=== PATIENT | male | born 1980 | race Caucasian/White ===

== ENCOUNTER 2018-08-12 12:53 | Day surgery (SDC) | payer OTHER, SELFPAY ==
--- NOTE | 2018-08-12 | PATH_ITS ---
[facility] Accession Number: [id number] . 01 Material submitted: . RECTAL BIOPSY . 02 Diagnosis: Rectum, Biopsy: Hyperplastic polyp. Negative for active inflammation, granulomata, dysplasia or malignancy. [facility]/08/13/2018 . 02 Electronically signed: . Ty Esparza MD, PhD, Pathologist NPI- [id number] . 01 Gross description: . Received one formalin-filled container labeled with the patient's name and labeled rectum. The specimen consists of a 0.4 cm portion of tissue, entirely submitted in one cassette. ([id number]) /FRR . 02 Pathologist provided ICD-10: K62.1 . 02 CPT . 991969 Specimen Comment: A duplicate report has been generated due to demographic updates. Performed at: 01 [facility] [address] [place] [address] [id number] MD Marcellus Durham MD Phone: [phone] Performed at: 02 [facility] [address] [place] [address] [id number] MD Ricarda Limon MD Phone: [phone]
[2018-08-12 13:58] VITALS: BP 116/68; PULSE 60; RESP 16; TEMP 36.4; O2SAT 99; BMI 24.7
[2018-08-12] MEDS: SODIUM CHLORIDE 0.9% 1,000 ML 100 ML IV (14:03)
--- NOTE | 2018-08-12 14:23 | PM.HP.1 ---
History of Present Illness Date Patient Seen: 08/12/18 Time Patient Seen: 14:23 Chief complaint: [id number] Narrative: Family history colon cancer. Patient's 1st colonoscopy Patient History Family & Social History Social History: household members family Meds Home Medications Medication Instructions Recorded Confirmed Type No Known Home Medications 08/12/18 08/12/18 History Allergies Allergy/AdvReac Type Severity Reaction Status Date / Time No Known Allergies Allergy Uncoded 01/07/18 12:47 Exam Vital Signs (past 8 hours): - 08/12/18 13:58 Temperature 97.6 F Pulse Rate 60 Respiratory Rate 16 Blood Pressure 116/68 Pulse Oximetry 99 Oxygen Delivery Method Room Air Narrative Exam Narrative: Oropharynx free of lesions Chest clear to auscultation percussion Cardiac exam reveals no S3 or murmur Assessment & Plan Plan: Assessment/Plan Narrative: Colonoscopy. Further recommendations for follow-up will be based on findings but if no polyps follow-up colonoscopy in 5 years.
--- NOTE | 2018-08-12 14:25 | PM.OP.ENDO ---
Operative Date/Time/Diagnoses Date of procedure: 08/12/18 Time of procedure: 14:25 Pre-op diagnosis: See indication and findings Procedure & Clinicians Study performed: Colonoscopy Same procedure as scheduled: Yes Indications: Family history of colon cancer in his father at less than age 60. First colonoscopy Surgeon: Jacy Foy Procedure Notes Procedure in detail: After informed consent was obtained the patient was placed in left lateral decubitus position. The video colonoscope was introduced the rectum and slowly advanced to the cecum. On slow withdrawal mucosa was carefully examined. The scope was removed. The patient tolerated the procedure well. Blood loss none Complications none Sedation Versed 8 mg fentanyl 100 mcg IV titration Total sedation time 26 min Findings 1. 5 mm polyp in the rectum Jumbo biopsy removed completely 2. Otherwise negative colonoscopy to cecum that was somewhat tortuous colon. Patient will need follow-up colonoscopy in 5 years due to his family history. We will be in touch regarding his pathology.
[2018-08-12] MEDS: fentaNYL 250 MCG/5 ML INJ IV (14:28)
[2018-08-12] MEDS: MIDAZOLAM 5 MG/5 ML VIAL IV (14:28)
[2018-08-12 14:51] VITALS: BP 113/73; PULSE 71; RESP 16; TEMP 36.8; O2SAT 98
[2018-08-12 15:11] VITALS: BP 110/61; PULSE 70; RESP 16; TEMP 36.6; O2SAT 99
== END 2018-08-12 15:14 | disposition home or self-care (01) ==
PROVIDERS: Visit Provider Internal Medicine Gastroenterology
PROC: 0DJD8ZZ Inspection of Lower Intestinal Tract, Via Natural or Artificial Opening Endoscopic (ICD-10-PCS; CPT 45378; principal; 2018-08-12 14:00)
DX: Z12.11 Encounter for screening for malignant neoplasm of colon (principal); Z80.0 Family history of malignant neoplasm of digestive organs; K62.1 Rectal polyp
CPT/HCPCS: 45380; 88305; J2250; J3010

== ENCOUNTER → 2021-01-01 06:39 | Outpatient (CLI) | payer OTHER, SELFPAY ==
--- NOTE | 2021-01-01 | DI.MRI.S_ITS ---
PROCEDURE: MR SHOULDER LT WO CON INDICATIONS: PAIN IN LEFT SHOULDER TECHNIQUE: Noncontrast oblique coronal T2 fast spin echo with fat saturation, oblique sagittal T1 spin echo and T2 fast spin echo with fat saturation, axial T1 spin echo and T2 fast spin echo with fat saturation through the shoulder. COMPARISON: None. FINDINGS: Image quality: Excellent. Rotator cuff: There is partial-thickness tear of the supraspinatus tendon. There is mild infraspinatus and subscapularis tendinosis. Sagittal images demonstrate no rotator cuff muscle atrophy. Bones and bursae: No bone marrow contusions or fractures. There there is cortical irregularity with subcortical cystic changes in the posterior humeral head. There is moderate acromioclavicular joint degeneration. The acromion demonstrates conventional anatomy, without an os acromiale. No pathologic subacromial-subdeltoid or subcoracoid bursal fluid is present. Capsule and soft tissues: Labrum is appears normal in absence of intra-articular contrast. The long head of the biceps tendon demonstrates normal location and morphology. The rotator interval appears normal, without fibrosis. The coracohumeral ligament is normal in thickness. IMPRESSION: 1. Partial thickness tear of the supraspinatus tendon. 2. Infraspinatus and subscapularis tendinosis. 3. Moderate acromioclavicular joint degeneration. 4. Cortical irregularity and subcortical cystic changes, suggesting shoulder impingement Dictated by: Lucina Pace M.D. on 01/01/2021 at 11:06 Approved by: Lucina Pace M.D. on 01/01/2021 at 11:28
== END ==
PROVIDERS: Referring Provider Orthopaedic Surgery; Visit Provider Orthopaedic Surgery
DX: S46.012A Strain of muscle(s) and tendon(s) of the rotator cuff of left shoulder, initial encounter (principal); M19.012 Primary osteoarthritis, left shoulder
CPT/HCPCS: 73221

== ENCOUNTER → 2022-01-28 10:33 | Outpatient (CLI) | payer OTHER, SELFPAY ==
--- NOTE | 2022-01-28 | DI.US.S_ITS ---
PROCEDURE: US SCROTUM INDICATIONS: SCROTAL VARICIES TECHNIQUE: Real-time scanning was performed of the scrotum and testicles, with image documentation. Color and pulse Doppler interrogation was performed of both testicles. COMPARISON: None. FINDINGS: Right: Testicle is normal in size at 4.4 x 3 x 2 cm, and homogenous in echotexture. Epididymis is normal in overall size and morphology. No hydrocele or varicoceles. Overlying scrotal skin is normal in thickness. Left: Testicle is normal in size at 4.2 x 2.6 x 1.8 cm, and homogeneous in echotexture. Epididymis is normal in overall size and morphology. Left epididymal cyst measuring 0.6 cm. No hydrocele. Varicocele is present. Overlying scrotal skin is normal in thickness. Doppler: Color and pulse Doppler demonstrate normal and symmetric arterial flow in both testicles. IMPRESSION: 1. Left varicocele. 2. No hydrocele. 3. No testicular mass. 4. Incidental benign left epididymal cyst measuring 0.6 cm. Dictated by: Gibson Clement M.D. on 01/28/2022 at 11:33 Approved by: Gibson Clement M.D. on 01/28/2022 at 11:36
== END ==
PROVIDERS: Referring Provider Physician Assistant Surgical; Visit Provider Physician Assistant Surgical
DX: I86.1 Scrotal varices (principal); N50.3 Cyst of epididymis
CPT/HCPCS: 76870

== ENCOUNTER → 2023-01-10 07:55 | Outpatient (CLI) | payer OTHER, SELFPAY ==
[2023-01-10 09:53] LABS: Alanine Aminotransferase 17 IU/L (<50); Albumin 4.4 g/dL (3.5-5.0); Albumin Globulin Ratio 1.4 (1.0-2.8); Alkaline Phosphatase 51 U/L (38-126); Aspartate Aminotransferase 25 IU/L (17-59); BUN Creatinine Ratio 26.7 (6-22); Bilirubin Total 0.6 mg/dL (0.2-1.3); Blood Urea Nitrogen 27 mg/dL (9-20); Calcium 9.5 mg/dL (8.4-10.2); Carbon Dioxide 31 mmol/L (22-32); Chloride 101 mmol/L (98-107); Cholesterol 227 mg/dL (140-199); Estimated Glomerular Filt Rate > 60 mL/min (>60); Globulin 3.2 g/dL (1.7-4.1); Glucose 86 mg/dL (70-100); HDL Cholesterol 68 mg/dL (40-60); HEMOLYSIS < 15 (0-50); LDL Cholesterol Calculated 143 mg/dL (<100); Potassium 4.5 mmol/L (3.4-5.1); Sodium 138 mmol/L (137-145); Total Protein 7.6 g/dL (6.3-8.2); Triglycerides 79 mg/dL (35-150)
== END ==
PROVIDERS: Referring Provider Internal Medicine; Visit Provider Internal Medicine
DX: L66.2 Folliculitis decalvans (principal)
CPT/HCPCS: 36415; 80053; 80061

== ENCOUNTER → 2023-02-19 08:26 | Outpatient (CLI) | payer OTHER, SELFPAY ==
[2023-02-19 09:57] LABS: Alanine Aminotransferase 15 IU/L (<50); Albumin 4.4 g/dL (3.5-5.0); Albumin Globulin Ratio 1.4 (1.0-2.8); Alkaline Phosphatase 59 U/L (38-126); Aspartate Aminotransferase 23 IU/L (17-59); BUN Creatinine Ratio 19.1 (6-22); Bilirubin Total 0.5 mg/dL (0.2-1.3); Blood Urea Nitrogen 18 mg/dL (9-20); Calcium 9.7 mg/dL (8.4-10.2); Carbon Dioxide 30 mmol/L (22-32); Chloride 101 mmol/L (98-107); Cholesterol 203 mg/dL (140-199); Estimated Glomerular Filt Rate > 60 mL/min (>60); Globulin 3.2 g/dL (1.7-4.1); Glucose 91 mg/dL (70-100); HDL Cholesterol 41 mg/dL (40-60); HEMOLYSIS < 15 (0-50); LDL Cholesterol Calculated 137 mg/dL (<100); Potassium 4.3 mmol/L (3.4-5.1); Sodium 139 mmol/L (137-145); Total Protein 7.6 g/dL (6.3-8.2); Triglycerides 127 mg/dL (35-150)
== END ==
PROVIDERS: Referring Provider Internal Medicine; Visit Provider Internal Medicine
DX: L66.2 Folliculitis decalvans (principal)
CPT/HCPCS: 36415; 80053; 80061

== ENCOUNTER → 2023-03-17 09:14 | Outpatient (CLI) | payer OTHER, SELFPAY ==
[2023-03-17 10:56] LABS: Alanine Aminotransferase 15 IU/L (<50); Albumin 4.5 g/dL (3.5-5.0); Albumin Globulin Ratio 1.5 (1.0-2.8); Alkaline Phosphatase 53 U/L (38-126); Aspartate Aminotransferase 23 IU/L (17-59); BUN Creatinine Ratio 18.5 (6-22); Bilirubin Total 0.5 mg/dL (0.2-1.3); Blood Urea Nitrogen 17 mg/dL (9-20); Calcium 9.5 mg/dL (8.4-10.2); Carbon Dioxide 30 mmol/L (22-32); Chloride 101 mmol/L (98-107); Cholesterol 206 mg/dL (140-199); Estimated Glomerular Filt Rate > 60 mL/min (>60); Globulin 3.1 g/dL (1.7-4.1); Glucose 95 mg/dL (70-100); HDL Cholesterol 45 mg/dL (40-60); HEMOLYSIS < 15 (0-50); LDL Cholesterol Calculated 145 mg/dL (<100); Potassium 4.6 mmol/L (3.4-5.1); Sodium 137 mmol/L (137-145); Total Protein 7.6 g/dL (6.3-8.2); Triglycerides 81 mg/dL (35-150)
== END ==
PROVIDERS: Referring Provider Internal Medicine; Visit Provider Internal Medicine
DX: L66.2 Folliculitis decalvans (principal)
CPT/HCPCS: 36415; 80053; 80061

== ENCOUNTER → 2023-04-14 08:28 | Outpatient (CLI) | payer OTHER, SELFPAY ==
[2023-04-14 10:04] LABS: Alanine Aminotransferase 15 IU/L (<50); Albumin 4.3 g/dL (3.5-5.0); Albumin Globulin Ratio 1.3 (1.0-2.8); Alkaline Phosphatase 55 U/L (38-126); Aspartate Aminotransferase 24 IU/L (17-59); Bilirubin Total 0.6 mg/dL (0.2-1.3); Blood Urea Nitrogen 20 mg/dL (9-20); Calcium 9.3 mg/dL (8.4-10.2); Carbon Dioxide 29 mmol/L (22-32); Chloride 101 mmol/L (98-107); Cholesterol 206 mg/dL (140-199); Estimated Glomerular Filt Rate > 60 mL/min (>60); Globulin 3.3 g/dL (1.7-4.1); Glucose 89 mg/dL (70-100); HDL Cholesterol 42 mg/dL (40-60); HEMOLYSIS < 15 (0-50); LDL Cholesterol Calculated 143 mg/dL (<100); Potassium 4.4 mmol/L (3.4-5.1); Sodium 137 mmol/L (137-145); Total Protein 7.6 g/dL (6.3-8.2); Triglycerides 103 mg/dL (35-150)
== END ==
PROVIDERS: Referring Provider Internal Medicine; Visit Provider Internal Medicine
DX: L66.2 Folliculitis decalvans (principal)
CPT/HCPCS: 36415; 80053; 80061

== ENCOUNTER → 2023-05-12 08:23 | Outpatient (CLI) | payer OTHER, SELFPAY ==
[2023-05-12 10:21] LABS: Alanine Aminotransferase 18 IU/L (<50); Albumin 4.5 g/dL (3.5-5.0); Albumin Globulin Ratio 1.4 (1.0-2.8); Alkaline Phosphatase 68 U/L (38-126); Aspartate Aminotransferase 26 IU/L (17-59); BUN Creatinine Ratio 26.5 (6-22); Bilirubin Total 0.5 mg/dL (0.2-1.3); Blood Urea Nitrogen 26 mg/dL (9-20); Calcium 9.5 mg/dL (8.4-10.2); Carbon Dioxide 30 mmol/L (22-32); Chloride 99 mmol/L (98-107); Cholesterol 231 mg/dL (140-199); Estimated Glomerular Filt Rate > 60 mL/min (>60); Globulin 3.2 g/dL (1.7-4.1); Glucose 86 mg/dL (70-100); HDL Cholesterol 45 mg/dL (40-60); HEMOLYSIS < 15 (0-50); LDL Cholesterol Calculated 166 mg/dL (<100); Potassium 4.1 mmol/L (3.4-5.1); Sodium 137 mmol/L (137-145); Total Protein 7.7 g/dL (6.3-8.2); Triglycerides 100 mg/dL (35-150)
== END ==
PROVIDERS: Referring Provider Internal Medicine; Visit Provider Internal Medicine
DX: L66.2 Folliculitis decalvans (principal)
CPT/HCPCS: 36415; 80053; 80061

== ENCOUNTER → 2023-06-09 09:14 | Outpatient (CLI) | payer OTHER, SELFPAY ==
[2023-06-09 10:38] LABS: Alanine Aminotransferase 15 IU/L (<50); Albumin 4.4 g/dL (3.5-5.0); Albumin Globulin Ratio 1.4 (1.0-2.8); Alkaline Phosphatase 69 U/L (38-126); Aspartate Aminotransferase 25 IU/L (17-59); BUN Creatinine Ratio 21.3 (6-22); Bilirubin Total 0.4 mg/dL (0.2-1.3); Blood Urea Nitrogen 19 mg/dL (9-20); Calcium 9.6 mg/dL (8.4-10.2); Carbon Dioxide 30 mmol/L (22-32); Chloride 101 mmol/L (98-107); Cholesterol 211 mg/dL (140-199); Estimated Glomerular Filt Rate > 60 mL/min (>60); Globulin 3.1 g/dL (1.7-4.1); Glucose 92 mg/dL (70-100); HDL Cholesterol 42 mg/dL (40-60); HEMOLYSIS < 15 (0-50); LDL Cholesterol Calculated 146 mg/dL (<100); Potassium 4.5 mmol/L (3.4-5.1); Sodium 138 mmol/L (137-145); Total Protein 7.5 g/dL (6.3-8.2); Triglycerides 114 mg/dL (35-150)
== END ==
PROVIDERS: Referring Provider Internal Medicine; Visit Provider Internal Medicine
DX: I66.21 Occlusion and stenosis of right posterior cerebral artery (principal); I66.22 Occlusion and stenosis of left posterior cerebral artery
CPT/HCPCS: 36415; 80053; 80061

== ENCOUNTER → 2023-07-01 09:04 | Outpatient (CLI) | payer OTHER, SELFPAY ==
[2023-07-01 10:34] LABS: Alanine Aminotransferase 16 IU/L (<50); Albumin 4.4 g/dL (3.5-5.0); Albumin Globulin Ratio 1.4 (1.0-2.8); Alkaline Phosphatase 61 U/L (38-126); Aspartate Aminotransferase 24 IU/L (17-59); BUN Creatinine Ratio 23.5 (6-22); Bilirubin Total 0.4 mg/dL (0.2-1.3); Blood Urea Nitrogen 20 mg/dL (9-20); Calcium 9.7 mg/dL (8.4-10.2); Carbon Dioxide 28 mmol/L (22-32); Chloride 102 mmol/L (98-107); Cholesterol 209 mg/dL (140-199); Estimated Glomerular Filt Rate > 60 mL/min (>60); Globulin 3.1 g/dL (1.7-4.1); Glucose 92 mg/dL (70-100); HDL Cholesterol 43 mg/dL (40-60); HEMOLYSIS < 15 (0-50); LDL Cholesterol Calculated 148 mg/dL (<100); Potassium 4.4 mmol/L (3.4-5.1); Sodium 137 mmol/L (137-145); Total Protein 7.5 g/dL (6.3-8.2); Triglycerides 89 mg/dL (35-150)
== END ==
PROVIDERS: Referring Provider Internal Medicine; Visit Provider Internal Medicine
DX: L66.2 Folliculitis decalvans (principal)
CPT/HCPCS: 36415; 80053; 80061

== ENCOUNTER → 2023-08-11 07:01 | Outpatient (CLI) | payer OTHER, SELFPAY ==
[2023-08-11 08:19] LABS: Alanine Aminotransferase 14 IU/L (<50); Albumin 4.4 g/dL (3.5-5.0); Albumin Globulin Ratio 1.3 (1.0-2.8); Alkaline Phosphatase 60 U/L (38-126); Aspartate Aminotransferase 24 IU/L (17-59); Bilirubin Total 0.5 mg/dL (0.2-1.3); Blood Urea Nitrogen 22 mg/dL (9-20); Calcium 9.9 mg/dL (8.4-10.2); Carbon Dioxide 28 mmol/L (22-32); Chloride 101 mmol/L (98-107); Cholesterol 201 mg/dL (140-199); Estimated Glomerular Filt Rate > 60 mL/min (>60); Globulin 3.4 g/dL (1.7-4.1); Glucose 93 mg/dL (70-100); HDL Cholesterol 39 mg/dL (40-60); HEMOLYSIS < 15 (0-50); LDL Cholesterol Calculated 144 mg/dL (<100); Sodium 139 mmol/L (137-145); Total Protein 7.8 g/dL (6.3-8.2); Triglycerides 91 mg/dL (35-150)
== END ==
PROVIDERS: Referring Provider Internal Medicine; Visit Provider Internal Medicine
DX: L66.2 Folliculitis decalvans (principal)
CPT/HCPCS: 36415; 80053; 80061

== ENCOUNTER 2024-03-22 07:26 | Day surgery (SDC) | payer OTHER, SELFPAY ==
--- NOTE | 2024-03-22 | PATH_ITS ---
[facility] Accession Number: [id number] No. of containers..01 Tissue . 01 Material submitted: . colon - DESCENDING COLON . 01 Diagnosis: Colon, descending, biopsy: Tubular adenoma. TXN 03/24/2024 1440 Local . 01 Electronically signed: . Nancie Palmer MD, Pathologist NPI- [id number] . 01 Gross description: . Received in formalin with two patient identifiers and descending colon, is a single decker soft tissue fragment, 0.3 cm in greatest dimension. Submitted in A1. ([id number]) /MRV 03/23/2024 1822 Local . 01 Pathologist provided ICD-10: D12.6 . 01 CPT . 100789 Specimen Comment: A courtesy copy of this report has been sent to [phone] Performed at: 01 [facility] [address], [place], [place] [id number] MD Marcellus Durham MD Phone: [phone]
[2024-03-22 07:43] VITALS: BP 118/75; PULSE 62; RESP 18; TEMP 36.2; O2SAT 99
[2024-03-22] MEDS: LACTATED RINGERS 1,000 ML 42 ML IV (07:54)
--- NOTE | 2024-03-22 07:59 | PM.HP.1 ---
History of Present Illness History of Present Illness Date Patient Seen: 03/22/24 Time Patient Seen: 07:59 Chief complaint: Colonoscopy Narrative: This is a 43-year-old male with a personal history of hyperplastic colon polyp in 2019 but a family history of colon cancer. He is here for high-risk screening. [facility] Social History household members: family Smoking Status: Never smoker Meds Home Medications and Allergies Home Medications Medication Instructions Recorded Confirmed Type azithromycin 250 mg tablet 250 mg PO DAILY 03/22/24 03/22/24 History calcipotriene 0.005 % scalp 1 applic topical BID 03/22/24 03/22/24 History solution Allergies Allergy/AdvReac Type Severity Reaction Status Date / Time No Known Allergies Allergy Uncoded 03/22/24 07:41 Review of Systems Review of Systems ROS: Yes All systems reviewed with the patient and are negative except as otherwise documented Exam Vital Signs (past 8 hours): - 03/22/24 07:43 Temperature 97.2 F L Pulse Rate 62 Respiratory Rate 18 Blood Pressure 118/75 Pulse Oximetry 99 Oxygen Delivery Method Room Air Oxygen Delivery Method Room Air Const General: cooperative HENMT Head: normal to inspection Eyes General: appearance normal, both eyes and all related structures Neck Neck: normal visual inspection Chest Chest: normal inspection of the chest Resp Effort & Inspection: normal respiratory effort Cardio Rate: regular rate GI Inspection: normal to inspection Skin General: no rashes or lesions noted Neuro General: patient alert and patient awake Extrem General: normal to inspection and no pedal edema Psych Appearance: grossly normal Assessment & Plan Assessment & Plan narrative: 43-year-old male with a family history of colon cancer. Colonoscopy is pursued today.
[2024-03-22] MEDS: LACTATED RINGERS 1,000 ML 120 ML IV (08:00)
--- NOTE | 2024-03-22 08:00 | PM.PREOP ---
Pre-operative Note Interval Note History & Physical reviewed/Exam performed by Physician: Yes Changes to H&P: No ASA Class (for procedural sedation): I
[2024-03-22 09:01] VITALS: BP 113/60; PULSE 79; RESP 14; TEMP 36.1; O2SAT 100
--- NOTE | 2024-03-22 09:01 | PM.OP.COLON ---
Operative Date/Time/Diagnoses Date of procedure: 03/22/24 Time of procedure: 09:01 Pre-op diagnosis: 43-year-old male with a family history of colon cancer. Post-op diagnosis: same Procedure & Clinicians Study performed: Colonoscopy with cold snare polypectomy Same procedure as scheduled: Yes Indications: 43-year-old with a family history of colon cancer Surgeon: Tk Rizvi Procedure Notes SCOAP/Timeout: Done Procedure in detail: After the risks and benefits were explained, written and verbal informed consent was obtained. The patient was brought into the procedure room and placed into the left lateral decubitus position. Please see anesthesia note for sedation details. Digital rectal examination was accomplished. The scope was introduced into the patient and advanced under direct visualization to the cecum as identified by the appendiceal orifice and ileocecal valve. The scope was slowly withdrawn to carefully examine the mucosa for any defects or lesions. Comprehensive imaging was accomplished throughout the rectum including the dentate line. The colon was decompressed, the scope was then removed from the patient who tolerated the procedure well. Adult colonoscope Bowel prep adequate Scope withdrawal time: 7 minutes Sedation minutes: 25 Complications: none Impression: The patient had a fairly lengthy colon. It was somewhat redundant. In the descending colon there was an approximately 5 mm polyp removed with cold snare. Grade 1 internal hemorrhoids with hypertrophied anal papillae were noted. No additional pathology was appreciated throughout. Endoscopic diagnosis 1. Small colon polyp 2. Grade 1 Internal hemorrhoids with hypertrophied anal papillae. Post-procedure Plan for aftercare: 1. Await histology 2. Repeat colonoscopy 5 years. Disposition: PACU
[2024-03-22 09:13] VITALS: BP 112/76; PULSE 64; RESP 14; TEMP 36.2; O2SAT 100
[2024-03-22 09:20] VITALS: BP 119/84; PULSE 61; RESP 16; TEMP 36.2; O2SAT 100
== END 2024-03-22 09:24 | disposition home or self-care (01) ==
PROVIDERS: Referring Provider Internal Medicine Gastroenterology; Visit Provider Internal Medicine Gastroenterology
PROC: 0DJD8ZZ Inspection of Lower Intestinal Tract, Via Natural or Artificial Opening Endoscopic (ICD-10-PCS; CPT 45378; principal; 2024-03-22 08:30)
DX: Z12.11 Encounter for screening for malignant neoplasm of colon (principal); Z80.0 Family history of malignant neoplasm of digestive organs; K64.0 First degree hemorrhoids; K64.4 Residual hemorrhoidal skin tags; D12.4 Benign neoplasm of descending colon
CPT/HCPCS: 45385; J2704